=== PATIENT | male | born 1955 | race Hispanic/Latino ===

== ENCOUNTER 2017-04-25 14:32 | Emergency (ER) | payer BC ==
[2017-04-25 14:37] VITALS: BMI 26.9
--- NOTE | 2017-04-25 15:13 | ED PDOC ---
Arrival/HPI - General Chief Complaint: Medical Clearance Time Seen by Provider: 04/25/17 14:36 Historian: Patient - History of Present Illness Narrative History of Present Illness (Text): 04/25/17 15:09 A 61 year old male, whose past medical history includes diabetes on insulin, hypertension and hyperlipidemia, presents to the emergency department complaining of low blood sugar prior to arrival. Patient reports while working outside he felt disoriented and diaphoretic. He states his symptoms feel similar to prior hypoglycemic episodes, and reports skipping lunch today. Patient states his symptoms have improved since but currently complains of a mild headache. His initial finger stick was 54 in the emergency room. Patient does say he has some chills and mild nausea. Patient denies any fever, vomiting , diarrhea, abdominal pain, urinary symptoms, chest pain, shortness of breath, dizziness or any other complaints. Patient reports he was admitted last week at another hospital for cellulitis. PMD: Non-[facility] provider Time/Duration: Prior to Arrival Symptom Course: Improving Quality: Other Context: Work Past Medical History - Provider Review Nursing Documentation Reviewed: Yes - Infectious Disease Hx of Infectious Diseases: None - Endocrine/Metabolic Hx Diabetes Mellitus Type 1: Yes - Psychiatric Hx Substance Use: No Family/Social History - Physician Review Nursing Documentation Reviewed: Yes Family/Social History: No Known Family HX Smoking Status: Never Smoked Hx Alcohol Use: No Hx Substance Use: No Allergies/Home Meds Allergies/Adverse Reactions: Allergies No Known Allergies Allergy (Verified 04/25/17 14:36) Home Medications: Home Meds Medication Instructions Recorded Confirmed Insulin Pump Cartridge [Omnipod] See Protocol .ROUTE DAILY 04/25/17 04/25/17 Review of Systems - Physician Review All systems were reviewed & negative as marked: Yes - Review of Systems Constitutional: absent: Fevers, Night Sweats Respiratory: absent: SOB Cardiovascular: absent: Chest Pain Gastrointestinal: absent: Abdominal Pain, Diarrhea, Nausea, Vomiting Genitourinary Male: absent: Dysuria, Frequency, Hematuria Neurological: Headache, Other ("Disoriented"). absent: Dizziness Endocrine: Diaphoresis Physical Exam Vital Signs Reviewed: Yes Vital Signs Temp Pulse Resp BP Pulse Ox 04/25/17 17:00 97.6 F 80 17 130/85 98 04/25/17 15:57 97.3 F L 04/25/17 14:47 97.6 F 75 18 125/78 96 Temperature: Afebrile Blood Pressure: Normal Pulse: Regular Respiratory Rate: Normal Appearance: Positive for: Well-Appearing, Non-Toxic, Comfortable Pain Distress: None Mental Status: Positive for: Alert and Oriented X 3 Finger Stick Blood Glucose: 54 - Systems Exam Head: Present: Atraumatic, Normocephalic Pupils: Present: PERRL Extroacular Muscles: Present: EOMI Conjunctiva: Present: Normal Mouth: Present: Moist Mucous Membranes Pharnyx: Present: Normal. No: ERYTHEMA, EXUDATE Neck: Present: Normal Range of Motion Respiratory/Chest: Present: Clear to Auscultation, Good Air Exchange. No: Respiratory Distress, Accessory Muscle Use Cardiovascular: Present: Regular Rate and Rhythm, Normal S1, S2. No: Murmurs Abdomen: Present: Normal Bowel Sounds. No: Tenderness, Distention, Peritoneal Signs Back: Present: Normal Inspection Upper Extremity: Present: Normal Inspection. No: Cyanosis, Edema Lower Extremity: Present: Normal Inspection. No: Edema Neurological: Present: GCS=15, CN II-XII Intact, Speech Normal Skin: Present: Warm, Dry, Normal Color. No: Rashes Psychiatric: Present: Alert, Oriented x 3, Normal Insight, Normal Concentration , Normal Affect, Normal Mood. No: Anxious, Agitated, Depressed Mood, Suicidal Ideation, Intoxicated, Lethargic Medical Decision Making ED Course and Treatment: 04/25/17 15:09 Impression: A 61 year old male with low blood sugar. Patient currently complains of a headache. Differential: hypglycemia vs sepsis Plan: -- Head CT -- EKG -- Labs -- Urinalysis -- Reassess and disposition Progress Notes: EKG shows NSR at 68 BPM with normal intervals, normal axis, no ST/T changes. Interpreted by me. 04/25/17 18:57 Patient with noted history; initial FS was 54 with improvement to 86; WBC is 17.9K - lactic acid 1.3; does not need code sepsis protocol. Will need admission for iv antibiotics for concern for bacteremia. Discussed with Dr. Magnus Dunbar, who accepted the patient to his service. 04/25/17 19:04 As a diabetic with leukocytosis of nearly 18K, he needs to be admitted for iv antibiotics; concern is for bacteremia and possible sepsis. He needs admission for iv antibiotics, but he is not from around here and is refusing to stay and says will go to a hospital close to his house. He understands the risk of leaving against medical advice including sepsis and . He is fully awake, alert, and oriented to person place and time and has full understanding of the ramifications of leaving against medical advice. - Lab Interpretations Lab Results: 04/25/17 15:20 04/25/17 15:20 Lab Results 04/25/17 18:14: pO2 31, VBG pH 7.30 L, VBG pCO2 54.0, VBG HCO3 26.6, VBG Total CO2 28.3 H, VBG O2 Sat (Calc) 67.4 H, VBG Base Excess -0.7 L, VBG Potassium 4.9 , Glucose 231 H, Lactate 1.3, FiO2 21.0, Sodium 132.0, Chloride 101.0, Venous Blood Potassium 4.9 04/25/17 15:23: POC Glucose (mg/dL) 86 04/25/17 15:20: Sodium 137, Potassium 4.4, Chloride 102, Carbon Dioxide 29, Anion Gap 10, BUN 26 H, Creatinine 0.9, Est GFR ( Amer) > 60, Est GFR ( Non-Af Amer) > 60, Random Glucose 95, Calcium 9.5, Magnesium 2.1, Total Bilirubin 0.6, AST 45, ALT 45, Alkaline Phosphatase 85, Lactate Dehydrogenase 609, Total Creatine Kinase 96, Troponin I < 0.01, Total Protein 6.6, Albumin 4.0 , Globulin 2.6, Albumin/Globulin Ratio 1.5, Lipase 40 04/25/17 15:20: Urine Color Yellow, Urine Appearance Clear, Urine pH 6.0, Ur Specific [place] 1.015, Urine Protein Negative, Urine Glucose (UA) Negative, Urine Ketones Negative, Urine Blood Negative, Urine Nitrate Negative, Urine Bilirubin Negative, Urine Urobilinogen 0.2, Ur Leukocyte Esterase Negative 04/25/17 15:20: WBC 17.9 H, RBC 4.51, Hgb 14.3, Hct 41.5 L, MCV 92.0, MCH 31.7, MCHC 34.5, RDW 12.3, Plt Count 226, MPV 9.3, Gran % 87.4 H, Lymph % (Auto) 7.9 L , Mathews % (Auto) 4.3, Eos % (Auto) 0.3 L, Baso % (Auto) 0.1, Gran # 15.61 H, Lymph # 1.4, Mathews # 0.8 H, Eos # 0.1, Baso # 0.02 I have reviewed the lab results: Yes - RAD Interpretation Radiology Orders: 04/25/17 15:16 Brain [HEAD W/O CONTRAST] [CT] Stat 04/25/17 15:49 CHEST TWO VIEWS (PA/LAT) [RAD] Stat - Medication Orders Current Medication Orders: Discontinued Medications Dextrose (Dextrose 50% Inj) 25 ml IVP STAT STA Stop: 04/25/17 15:51 Last Admin: 04/25/17 16:30 Dose: Not Given Non-Admin Reason: Blood Sugar Parameter IVP Administration Document 04/25/17 16:30 AB (Rec: 04/25/17 16:31 AB [id number]) Charges for Administration # of IVP Administrations 0 Sodium Chloride (Sodium Chloride 0.9%) 1,000 mls @ 999 mls/hr IV .Q1H1M STA Stop: 04/25/17 18:10 Last Admin: 04/25/17 17:31 Dose: 999 mls/hr eMAR Start Stop Document 04/25/17 17:31 IT (Rec: 04/25/17 17:31 IT [id number]) Intravenous Solution Start Date 04/25/17 Start Time 17:31 End Date 04/25/17 End time 18:31 Total Infusion Time 60 Tramadol HCl (Ultram) 50 mg PO STAT STA Stop: 04/25/17 16:36 Last Admin: 04/25/17 17:02 Dose: 50 mg MAR Pain Assessment Document 04/25/17 17:02 IT (Rec: 04/25/17 17:03 IT [id number]) Pain Reassessment Is this a pain reassessment? No Sleep Is patient sleeping during reassessment? No Presence of Pain Presence of Pain Yes Pain Scale Used Pain Scale Used Numeric Location Pain Location Body Video Camera Operator - Scribe Statement The provider has reviewed the documentation as recorded by the Scriboh Coleman Provider Scribe Attestation: All medical record entries made by the Scribe were at my direction and personally dictated by me. I have reviewed the chart and agree that the record accurately reflects my personal performance of the history, physical exam, medical decision making, and the department course for this patient. I have also personally directed, reviewed, and agree with the discharge instructions and disposition. Disposition/Present on Arrival - Present on Arrival Any Indicators Present on Arrival: No History of DVT/PE: No History of Uncontrolled Diabetes: No Urinary Catheter: No History of Decub. Ulcer: No History Surgical Site Infection Following: None - Disposition Have Diagnosis and Disposition been Completed?: Yes Diagnosis: Leukocytosis, Hypoglycemia Disposition: AGAINST MEDICAL ADVICE Disposition Time: 19:05 Patient Plan: Other (AGAINST MEDICAL ADVICE) Condition: STABLE Additional Instructions: You are leaving against medical advice and may return to the emergency department at any time. If you choose not to do so, then follow up with your primary care doctor as soon as possible. Forms: [employer] (Martiniquais)
[2017-04-25 15:45] LABS: BASO # 0.02 K/mm3 (0.0-2.0); BASO % 0.1 % (0.0-3.0); EOS # 0.1 (0.0-0.7); EOS % 0.3 % (1.5-5.0); GRAN # 15.61 (1.4-6.5); GRAN % 87.4 % (50.0-68.0); HEMATOCRIT 41.5 % (42.0-52.0); LYMPH # 1.4 (1.2-3.4); LYMPH % 7.9 % (22.0-35.0); MEAN CORPUSCULAR HEMOGLOBIN 31.7 pg (25.0-35.0); MEAN CORPUSCULAR HGB CONC 34.5 g/dl (31.0-37.0); MEAN PLATELET VOLUME 9.3 fl (7.0-11.0); MONO # 0.8 (0.1-0.6); MONO % 4.3 % (1.0-6.0); RED CELL DISTRIBUTION WIDTH 12.3 % (11.5-14.5); WHITE BLOOD COUNT 17.9 10^3/ul (4.5-11.0)
[2017-04-25] MEDS ORDERED: Dextrose 50% SYRINGE Inj (50 ml) IVP STA (15:50)
[2017-04-25 15:55] LABS: URINE BILIRUBIN NEGATIVE (NEGATIVE); URINE BLOOD NEGATIVE (NEGATIVE); URINE GLUCOSE (UA) NEGATIVE (NEGATIVE); URINE KETONE NEGATIVE (NEGATIVE); URINE LEUKOCYTE ESTERASE NEGATIVE Leu/uL (NEGATIVE); URINE PROTEIN NEGATIVE mg/dL (<30 mg/dL); URINE UROBILINOGEN 0.2 E.U./dL (<1 E.U./dL)
[2017-04-25 16:02] LABS: ALB/GLOB RATIO 1.5 (1.1-1.8); ALKALINE PHOSPHATASE 85 U/L (38-126); ALT/SGPT 45 U/L (7-56); AST/SGOT 45 U/L (17-59); BILIRUBIN,TOTAL 0.6 mg/dL (0.2-1.3); BLOOD UREA NITROGEN 26 mg/dL (7-21); CALCIUM 9.5 mg/dL (8.4-10.5); CARBON DIOXIDE 29 mmol/L (21-33); CHLORIDE 102 mmol/L (98-107); GFR AFRICAN-AMERICAN > 60; GLUCOSE,RANDOM 95 mg/dL (70-110); LIPASE 40 U/L (23-300); MAGNESIUM 2.1 mg/dL (1.7-2.2); POTASSIUM 4.4 mmol/L (3.6-5.0); SODIUM 137 mmol/L (132-148); TOTAL PROTEIN 6.6 g/dL (5.8-8.3)
[2017-04-25 16:08] LABS: URINE APPEARANCE CLEAR (CLEAR); URINE COLOR YELLOW (YELLOW)
[2017-04-25 16:15] LABS: TROPONIN I < 0.01 ng/mL
--- NOTE | 2017-04-25 16:22 | CT ---
PROCEDURE: CT HEAD WITHOUT CONTRAST. HISTORY: alt ms COMPARISON: None available. TECHNIQUE: Axial computed tomography images were obtained through the head/brain without intravenous contrast. Radiation dose: Total exam DLP = 941.65 mGy-cm. This CT exam was performed using one or more of the following dose reduction techniques: Automated exposure control, adjustment of the mA and/or kV according to patient size, and/or use of iterative reconstruction technique. FINDINGS: HEMORRHAGE: No intracranial hemorrhage. BRAIN: No mass effect or edema. No atrophy or chronic microvascular ischemic changes. VENTRICLES: Unremarkable. No hydrocephalus. CALVARIUM: Unremarkable. PARANASAL SINUSES: Unremarkable as visualized. No significant inflammatory changes. MASTOID AIR CELLS: Unremarkable as visualized. No inflammatory changes. OTHER FINDINGS: None. IMPRESSION: Normal CT of the Head.
[2017-04-25] MEDS ORDERED: Sodium Chloride 0.9% 1,000 ML IV STA (17:10)
--- NOTE | 2017-04-25 18:15 | RAD ---
HISTORY: Altered mental status, leukocytosis COMPARISON: No prior. TECHNIQUE: Chest PA and lateral FINDINGS: LUNGS: No active pulmonary disease. PLEURA: No significant pleural effusion identified. No pneumothorax apparent. CARDIOVASCULAR: No radiographic findings to suggest acute or significant cardiovascular disease. OSSEOUS STRUCTURES: No significant abnormalities. VISUALIZED UPPER ABDOMEN: Normal. OTHER FINDINGS: None. IMPRESSION: No active disease. Please note: No preliminary report/ innterpretation of this examination provided by emergency department personnel.
[2017-04-25 18:21] LABS: VENOUS BLOOD GAS BASE EXCESS -0.7 mmol/L (0.0-2.0)
[2017-04-25 18:49] VITALS: PULSE 80
[2017-04-25 19:20] VITALS: BP 132/76; RESP 16; TEMP 97.7; O2SAT 100
--- NOTE | 2017-04-25 22:03 | CARD ---
APPROVED REPORT EKG Measurement Heart [id number] <Conclusion> Normal sinus rhythm Normal ECG
== END 2017-04-25 19:46 | disposition left against medical advice (07) ==
LOC: ED 14:32
DX: E10.649 Type 1 diabetes mellitus with hypoglycemia without coma (principal); Z79.4 Long term (current) use of insulin; D72.829 Elevated white blood cell count, unspecified; E78.5 Hyperlipidemia, unspecified; I10 Essential (primary) hypertension
CPT/HCPCS: 70450; 71020; 80053; 81003; 82550; 82803; 82948; 83615; 83690; 83735; 84484; 85025; 87040; 87086; 93005; 96360; 99284; J7040

== ENCOUNTER 2018-02-15 08:59 | Emergency (ER) | payer OTHER ==
[2018-02-15 09:10] VITALS: BMI 27.2
--- NOTE | 2018-02-15 09:22 | ED PDOC ---
Arrival/HPI - General Chief Complaint: Upper Extremity Problem/Injury Time Seen by Provider: 02/15/18 09:22 Historian: Patient - History of Present Illness Narrative History of Present Illness (Text): 02/15/18 09:22 This 62 yo male with pmh diabetes, presents to this emergency department complaining of right shoulder pain after a mechanical fall x [employer]. Patient stated while at work, he tripped and fell down on his right shoulder. Patient feel "a lot of pain on his right shoulder. Denies abrasion, neck pain, PATTERSON, diplopia, dysarthria, or abnormal gait. Time/Duration: Prior to Arrival Quality: Aching Context: Work Past Medical History - Provider Review Nursing Documentation Reviewed: Yes - Infectious Disease Hx of Infectious Diseases: None - Cardiac Hx Hypertension: Yes - Endocrine/Metabolic Hx Diabetes Mellitus Type 1: Yes - Psychiatric Hx Substance Use: No - Anesthesia Hx Anesthesia: No Family/Social History - Physician Review Nursing Documentation Reviewed: Yes Family/Social History: Other (noncontributory) Smoking Status: Never Smoked Hx Alcohol Use: No Hx Substance Use: No Allergies/Home Meds Allergies/Adverse Reactions: Allergies No Known Allergies Allergy (Verified 04/25/17 14:36) Home Medications: Home Meds Medication Instructions Recorded Confirmed Insulin Aspart, Recombinant See Protocol SC QID 02/15/18 02/15/18 [Novolog] Lisinopril [Zestril] 1 tab PO DAILY 02/15/18 02/15/18 Pravastatin Sodium [Pravachol] 1 tab PO HS 02/15/18 02/15/18 Verapamil [Calan SR Tab] 1 tab PO DAILY 02/15/18 02/15/18 Review of Systems - Review of Systems Constitutional: Normal. absent: Fatigue, Weight Change, Fevers Eyes: Normal ENT: Normal Respiratory: Normal Cardiovascular: Normal Gastrointestinal: Normal Genitourinary Male: Normal Musculoskeletal: Other (right shoulder pain) Skin: Normal Neurological: Normal Endocrine: Normal Hemo/Lymphatic: Normal Psychiatric: Normal Physical Exam Vital Signs Temp Pulse Resp BP Pulse Ox 02/15/18 09:15 98.1 F 78 18 133/67 95 Temperature: Afebrile Blood Pressure: Normal Pulse: Regular Respiratory Rate: Normal Appearance: Positive for: Well-Appearing, Non-Toxic, Comfortable Pain Distress: None Mental Status: Positive for: Alert and Oriented X 3 - Systems Exam Head: Present: Atraumatic, Normocephalic, Other (no raccoon sign. No oneill sign) Pupils: Present: PERRL, Other (no hyphema) Extroacular Muscles: Present: EOMI. No: Entrapment Conjunctiva: Present: Normal Ears: Present: Normal, NORMAL TM, Other (no hemotympanum) Mouth: Present: Moist Mucous Membranes Neck: Present: Normal Range of Motion, Trachea Midline. No: Meningeal Signs, MIDLINE TENDERNESS, Paraspinal Tenderness, Lymphadenopathy Upper Extremity: Present: NORMAL PULSES, Tenderness, Swelling, Neurovascularly Intact, Capillary Refill < 2s, Other ((+) Right shoulder is mild swelling and tender). No: Normal ROM (due to pain), Deformity Lower Extremity: Present: Normal Inspection, NORMAL PULSES, Normal ROM, Neurovascularly Intact Neurological: Present: GCS=15, CN II-XII Intact, Speech Normal, Motor Func Grossly Intact, Normal Sensory Function, Normal Cerebellar Funct, Gait Normal, Memory Normal Skin: Present: Warm, Dry, Normal Color. No: Rashes Psychiatric: Present: Alert, Oriented x 3, Normal Insight, Normal Concentration Medical Decision Making ED Course and Treatment: 02/15/18 10:[address] Scott, who recommended top come to his office today. 02/15/18 10:51 Patient stated he prefers to see an orthopedist closer to his house. 02/15/18 10:52 Re-evaluation. Patient feels better. Discussed results and plan with patient who expresses understanding. All questions answered and there is agreement with the plan to discharge home with instructions. Patient stable for discharge. Return if symptoms persist or worsen. Re-evaluation Time: 10:50 Reassessment Condition: Re-examined, Improved - RAD Interpretation Narrative RAD Interpretations (Text): 02/15/18 10:32 Date of service: 02/15/2018 PROCEDURE: Radiographs of the Right Shoulder HISTORY: pain s/p fall COMPARISON: No prior. FINDINGS: BONES: There is an acute comminuted nondisplaced impacted fracture in the neck of the humerus extending to the greater tuberosity. Bone alignment is normal. There is diffuse bone demineralization. 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 No dislocation. SOFT TISSUES: Normal. OTHER FINDINGS: None. IMPRESSION: Acute comminuted nondisplaced impacted fracture in the neck of the humerus extending to the greater tuberosity. No dislocation. Radiology Orders: 02/15/18 09:30 SHOULDER RIGHT [RAD] Stat - Medication Orders Current Medication Orders: Discontinued Medications Ketorolac Tromethamine (Toradol) 30 mg IM STAT STA Stop: 02/15/18 09:32 Last Admin: 02/15/18 09:41 Dose: 30 mg MAR Pain Assessment Document 02/15/18 09:41 SF (Rec: 02/15/18 09:[address] [email or web address]) Pain Reassessment Is this a pain reassessment? Yes Sleep Is patient sleeping during reassessment? No Presence of Pain Presence of Pain Yes IM Administration Charges Document 02/15/18 09:41 SF (Rec: 02/15/18 09:41 SF [email or web address]) Injection Site MAR Injection Site Right Deltoid Charges for Administration # of IM Administrations 1 Disposition/Present on Arrival - Present on Arrival Any Indicators Present on Arrival: No History of DVT/PE: No History of Uncontrolled Diabetes: No Urinary Catheter: No History of Decub. Ulcer: No History Surgical Site Infection Following: None - Disposition Have Diagnosis and Disposition been Completed?: Yes Diagnosis: Comminuted fracture of humerus Disposition: HOME/ ROUTINE Disposition Time: 10:54 Patient Plan: Discharge Patient Problems: Current Active Problems Problem Status Onset Comminuted fracture of humerus Acute Condition: GOOD Discharge Instructions (ExitCare): Upper Arm Fracture Additional Instructions: Call private doctor for follow up visit in 1-2 days. Take medication as instructed. Return to emergency if symptoms worsen. Make sure to see Orthopedist in 1-2 days. Do not remove arm sling. Do not drive with arm sling. Pain medication could make you feel drowsy. Do not drive or operate machinery for at least 12 hours after taking Percocet. Percocet could be addicted. Prescriptions: Ibuprofen [Motrin] 600 mg PO Q8H PRN #30 tab PRN Reason: Pain, Severe (8-10) oxyCODONE/Acetaminophen [Percocet 5/325 mg Tab] 1 tab PO Q6H PRN #15 tab PRN Reason: Pain, Severe (8-10) Referrals: Bertin Scott DO [Staff Provider] - Follow up with primary Forms: [employer] (Belarusian), WORK NOTE
--- NOTE | 2018-02-15 10:19 | RAD ---
Date of service: 02/15/2018 PROCEDURE: Radiographs of the Right Shoulder HISTORY: pain s/p fall COMPARISON: No prior. FINDINGS: BONES: There is an acute comminuted nondisplaced impacted fracture in the neck of the humerus extending to the greater tuberosity. Bone alignment is normal. There is diffuse bone demineralization. 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 No dislocation. SOFT TISSUES: Normal. OTHER FINDINGS: None. IMPRESSION: Acute comminuted nondisplaced impacted fracture in the neck of the humerus extending to the greater tuberosity. No dislocation.
[2018-02-15 11:12] VITALS: BP 135/70; PULSE 75; RESP 17; O2SAT 99
[2018-02-15 11:14] VITALS: TEMP 98.6
== END 2018-02-15 11:13 | disposition home or self-care (01) ==
LOC: ED 08:59
DX: S42.354A Nondisplaced comminuted fracture of shaft of humerus, right arm, initial encounter for closed fracture (principal); W01.0XXA Fall on same level from slipping, tripping and stumbling without subsequent striking against object, initial encounter; Y92.89 Other specified places as the place of occurrence of the external cause; Y99.0 Civilian activity done for income or pay
CPT/HCPCS: 73030; 96372; 99284; J1885